=== PATIENT | male | born 1960 | race Caucasian/White ===

== ENCOUNTER → 2016-09-22 | Outpatient (CLI) | payer OTHER ==
[~2016-09-22] MED LIST: APIDRA100 U/ML SC; AUGMENTIN XR 101 TER PO; CIPRODEX 0.3%-7.5 ML OT; HYDROCODONE BIT1 T11 PO; KEFLEX500 MG PO; LANTUS100 U/ML SC; MOTRIN800 MG PO; OMEPRAZOLE40 MG PO; RAMIPRIL PO; RAMIPRIL2.5 MG PO; SIMVASTATIN40 MG PO; ULTRAM50 MG PO; VICODIN 5/500 505 MG PO
[2016-09-22 09:50] LABS: ALBUMIN 3.8 gm/dl (3.1-4.5); ALKALINE PHOSPHATASE 72 U/L (45-117); BILIRUBIN, TOTAL 0.7 mg/dl (0.2-1.0); BUN 16 mg/dl (7-24); CARBON DIOXIDE 31 mmol/L (21-32); CHLORIDE 105 mmol/L (98-107); CHOLESTEROL 149 mg/dL (<200); EST GLOM FILT AFRICAN AMERICAN > 60 ml/min; GLUCOSE 81 mg/dL (65-99); HDL CHOLESTEROL 54 mg/dl (40-60); LDL CHOLESTEROL 82 mg/dL (9-159); POTASSIUM 4.3 mmol/L (3.5-5.1); SGOT/AST 23 IU/L (3-35); SGPT/ALT 27 U/L (12-78); SODIUM 141 mmol/L (136-145); TOTAL PROTEIN 7.2 gm/dL (6.4-8.2); TRIGLYCERIDES 63 mg/dl (<150); VLDL CHOLESTEROL 13 mg/dL (6-40)
[2016-09-22 10:42] LABS: HEMOGLOBIN A1c 6.5 % (4.8-5.6)
== END | disposition home or self-care (01) ==
LOC: LAB 08:27
PROVIDERS: Physician Assistant
DX: E78.2 Mixed hyperlipidemia (principal); E10.9 Type 1 diabetes mellitus without complications

== ENCOUNTER → 2017-04-21 | Outpatient (CLI) | payer OTHER ==
[2017-04-21 06:27] LABS: ALBUMIN 3.6 gm/dl (3.1-4.5); BUN 13 mg/dl (7-24); CHLORIDE 106 mmol/L (98-107); CHOLESTEROL 126 mg/dL (<200); CREATININE 1.17 mg/dL (0.70-1.30); POTASSIUM 4.6 mmol/L (3.5-5.1); SGOT/AST 23 IU/L (3-35); SGPT/ALT 22 U/L (12-78); SODIUM 140 mmol/L (136-145); VLDL CHOLESTEROL 17 mg/dL (6-40)
[2017-04-21 06:29] LABS: ALKALINE PHOSPHATASE 98 U/L (45-117); HDL CHOLESTEROL 42 mg/dl (40-60); LDL CHOLESTEROL 67 mg/dL (9-159); TOTAL PROTEIN 6.8 gm/dL (6.4-8.2)
== END | disposition home or self-care (01) ==
LOC: LAB 05:04
PROVIDERS: Internal Medicine Endocrinology, Diabetes & Metabolism
DX: E10.9 Type 1 diabetes mellitus without complications (principal); E78.2 Mixed hyperlipidemia

== ENCOUNTER → 2018-01-22 | Outpatient (CLI) | payer OTHER ==
[2018-01-22 15:56] LABS: BASO # 0.1 10*3/uL (0.0-0.1); BASO % 0.8 % (0.0-1.0); EOS # 0.2 10*3/uL (0.0-0.4); EOS % 2.5 % (1.0-4.0); HEMATOCRIT 41.8 % (42.0-52.0); HEMOGLOBIN 14.2 g/dl (14.0-18.0); LYMPH # 2.1 10*3/uL (1.3-4.4); LYMPH % 28.1 % (27.0-41.0); MEAN CELL VOLUME 88.6 fl (80.0-94.0); MEAN CORPUSCULAR HGB 30.1 pg (27.0-31.0); MEAN PLATELET VOLUME 10.6 fl (9.6-12.3); MONO # 0.4 10*3/uL (0.1-1.0); MONO % 5.5 % (3.0-9.0); NEUT # 4.6 10*3/uL (2.3-7.9); PLATELET COUNT AUTOMATED 241 10*3/uL (130-400); RED BLOOD COUNT 4.72 10*6/uL (4.50-5.90); RED CELL DISTRI WIDTH 11.9 % (0-14.5); WHITE BLOOD COUNT 7.3 10*3/uL (4.8-10.8)
[2018-01-23 05:12] LABS: TOTAL PROTEIN, SERUM 6.5 g/dL (6.0-8.5)
[2018-01-23 14:07] LABS: A/G RATIO 1.4 (0.7-1.7); ALBUMIN 3.8 g/dL (2.9-4.4); ALPHA-1-GLOBULIN 0.2 g/dL (0.0-0.4); ALPHA-2-GLOBULIN 0.6 g/dL (0.4-1.0); BETA GLOBULIN 0.9 g/dL (0.7-1.3); GLOBULIN, TOTAL 2.7 g/dL (2.2-3.9); M-SPIKE Not Observed g/dL (Not Observed)
== END | disposition home or self-care (01) ==
LOC: LAB 15:24
PROVIDERS: Orthopaedic Surgery
DX: M48.062 Spinal stenosis, lumbar region with neurogenic claudication (principal); E78.2 Mixed hyperlipidemia; E10.9 Type 1 diabetes mellitus without complications

== ENCOUNTER → 2019-01-14 | Outpatient (CLI) | payer OTHER ==
--- NOTE | ~2019-01-14 | EKG ---
[place], [place] ELECTROCARDIOGRAM REPORT NAME: ROMA SHARMA UNIT #: [id number] ROOM: DOCTOR: EPIPHANY DRAFT REPORT BIRTHDATE: [birth year] [facility] Test Date: 2019-01-14 Test Time: 07:48:38 Pat Name: ROMA SHARMA Department: Room: OP Gender: M Career Coordinator: : 1960 Requested By: PARMINDER SANTANA Order Number: [id number] Reading MD: Arun Buenrostro Measurements Intervals [place] Rate: 58 P: 52 NM: 165 QRS: -38 QRSD: 101 T: 3 QT: 431 QTc: 424 Interpretive Statements Sinus rhythm Left axis deviation Borderline ST elevation, anterolateral leads Baseline wander in lead(s) V3,V5 Electronically Signed On 01-14-2019 9:42:42 PST by Arun Buenrostro CM:EKGRPT:ELECTROCARDIOGRAM REPORT [id number] PARMINDER SANTANA EPIPHANY DRAFT REPORT PARMINDER SANTANA
[2019-01-14 08:13] LABS: ALBUMIN 3.8 gm/dl (3.1-4.5); ALKALINE PHOSPHATASE 66 U/L (45-117); BUN 17 mg/dl (7-24); CHLORIDE 104 mmol/L (98-107); CHOLESTEROL 151 mg/dL (<200); CREATININE 1.13 mg/dL (0.70-1.30); HDL CHOLESTEROL 59 mg/dl (40-60); LDL CHOLESTEROL 80 mg/dL (9-159); POTASSIUM 4.2 mmol/L (3.5-5.1); SGOT/AST 24 IU/L (3-35); SGPT/ALT 26 U/L (12-78); SODIUM 139 mmol/L (136-145); TOTAL PROTEIN 7.2 gm/dL (6.4-8.2); VLDL CHOLESTEROL 12 mg/dL (6-40)
== END | disposition home or self-care (01) ==
LOC: LAB 07:12
PROVIDERS: Internal Medicine Endocrinology, Diabetes & Metabolism
DX: Z01.812 Encounter for preprocedural laboratory examination (principal); S76.311D Strain of muscle, fascia and tendon of the posterior muscle group at thigh level, right thigh, subsequent encounter; E11.9 Type 2 diabetes mellitus without complications; E78.2 Mixed hyperlipidemia; X58.XXXD Exposure to other specified factors, subsequent encounter

== ENCOUNTER → 2020-03-16 | Outpatient (CLI) | payer OTHER ==
[2020-03-16 08:30] LABS: ALBUMIN 3.9 gm/dl (3.1-4.5); ALKALINE PHOSPHATASE 79 U/L (45-117); BUN 17 mg/dl (7-24); CHLORIDE 108 mmol/L (98-107); CHOLESTEROL 163 mg/dL (<200); CREATININE 1.16 mg/dL (0.70-1.30); HDL CHOLESTEROL 71 mg/dl (40-60); LDL CHOLESTEROL 80 mg/dL (9-159); POTASSIUM 4.7 mmol/L (3.5-5.1); SGOT/AST 30 IU/L (3-35); SGPT/ALT 28 U/L (12-78); SODIUM 142 mmol/L (136-145); TOTAL PROTEIN 7.2 gm/dL (6.4-8.2); VLDL CHOLESTEROL 12 mg/dL (6-40)
== END | disposition home or self-care (01) ==
LOC: LAB 07:14
PROVIDERS: ATTEND Internal Medicine Endocrinology, Diabetes & Metabolism
DX: E10.9 Type 1 diabetes mellitus without complications (principal); E78.2 Mixed hyperlipidemia

== ENCOUNTER → 2020-09-12 | Outpatient (CLI) | payer OTHER ==
[2020-09-12 09:55] LABS: CHLORIDE 108 mmol/L (98-107); POTASSIUM 4.3 mmol/L (3.5-5.1); SODIUM 140 mmol/L (136-145)
[2020-09-12 10:18] LABS: ALBUMIN 3.7 gm/dl (3.1-4.5); ALKALINE PHOSPHATASE 78 U/L (45-117); BUN 19 mg/dl (7-24); CHOLESTEROL 152 mg/dL (<200); CREATININE 0.96 mg/dL (0.70-1.30); LDL CHOLESTEROL 88 mg/dL (9-159); SGOT/AST 23 IU/L (3-35); SGPT/ALT 26 U/L (12-78); TOTAL PROTEIN 7.1 gm/dL (6.4-8.2)
[2020-09-13 04:05] LABS: CREATININE,URINE 73.1 mg/dL (Not Estab.)
== END | disposition home or self-care (01) ==
LOC: LAB 08:33
PROVIDERS: ATTEND Internal Medicine Endocrinology, Diabetes & Metabolism
DX: E10.9 Type 1 diabetes mellitus without complications (principal); E78.2 Mixed hyperlipidemia

== ENCOUNTER → 2021-04-02 | Outpatient (CLI) | payer OTHER ==
[2021-04-02 08:21] LABS: ALBUMIN 3.5 gm/dl (3.1-4.5); ALKALINE PHOSPHATASE 83 U/L (45-117); BUN 18 mg/dl (7-24); CHLORIDE 112 mmol/L (98-107); CHOLESTEROL 132 mg/dL (<200); CREATININE 1.06 mg/dL (0.70-1.30); LDL CHOLESTEROL 69 mg/dL (9-159); POTASSIUM 4.7 mmol/L (3.5-5.1); SGOT/AST 24 IU/L (3-35); SGPT/ALT 24 U/L (12-78); SODIUM 142 mmol/L (136-145); TOTAL PROTEIN 6.7 gm/dL (6.4-8.2); TRIGLYCERIDES 94 mg/dl (<150)
[2021-04-03 11:06] LABS: LDL CHOLESTEROL (DIRECT) 70 mg/dL (0-99)
[2021-04-04 10:08] LABS: CREATININE,URINE 115.9 mg/dL (Not Estab.)
== END | disposition home or self-care (01) ==
LOC: LAB 07:27
PROVIDERS: ATTEND Internal Medicine Endocrinology, Diabetes & Metabolism
DX: E78.2 Mixed hyperlipidemia (principal); E10.9 Type 1 diabetes mellitus without complications

== ENCOUNTER 2021-05-10 22:50 | Emergency (ER) | payer OTHER ==
[~2021-05-10] VITALS: Ht 187.9 cm; Wt 88.5 kg
[2021-05-10 22:51] VITALS: BP 124/72
[2021-05-10 23:07] LABS: BASO # 0.1 10*3/uL (0.0-0.1); BASO % 0.8 % (0.0-1.0); EOS # 0.3 10*3/uL (0.0-0.4); EOS % 2.7 % (1.0-4.0); HEMATOCRIT 39.5 % (42.0-52.0); LYMPH # 2.7 10*3/uL (1.3-4.4); LYMPH % 24.8 % (27.0-41.0); MEAN CELL VOLUME 90.8 fl (80.0-94.0); MEAN CORPUSCULAR HGB 29.7 pg (27.0-31.0); MEAN CORPUSCULAR HGB CONC 32.7 g/dl (33.0-37.0); MEAN PLATELET VOLUME 11.1 fl (9.6-12.3); MONO # 0.8 10*3/uL (0.1-1.0); MONO % 7.5 % (3.0-9.0); NEUT % 63.9 % (47.0-73.0); PLATELET COUNT AUTOMATED 199 10*3/uL (130-400); RED BLOOD COUNT 4.35 10*6/uL (4.50-5.90); RED CELL DISTRI WIDTH 13.2 % (0-14.5); WHITE BLOOD COUNT 10.9 10*3/uL (4.8-10.8)
[2021-05-10 23:22] LABS: ALKALINE PHOSPHATASE 68 U/L (45-117); BUN 20 mg/dl (7-24); CHLORIDE 108 mmol/L (98-107); CREATININE 1.05 mg/dL (0.70-1.30); POTASSIUM 3.1 mmol/L (3.5-5.1); SGOT/AST 29 IU/L (3-35); SGPT/ALT 24 U/L (12-78); SODIUM 141 mmol/L (136-145); TOTAL PROTEIN 6.6 gm/dL (6.4-8.2)
[2021-05-11 00:49] LABS: BILIRUBIN Negative (Negative); BLOOD Negative (Negative); CLARITY Clear (Clear); COLOR Yellow (Yellow); GLUCOSE 3+ (Negative); KETONE Negative (Negative); LEUKO ESTERASE Negative (Negative); NITRITE Negative (Negative); SPECIFIC GRAVITY 1.015 (1.001-1.030); UROBILINOGEN 0.2 E.U./dl (0.0-1.0)
[2021-05-11 00:58] LABS: BACTERIA TRACE
== END 2021-05-11 01:27 | disposition home or self-care (01) ==
LOC: ED 22:50
PROVIDERS: Student in an Organized Health Care Education/Training Program
DX: E11.649 Type 2 diabetes mellitus with hypoglycemia without coma (principal); Z79.899 Other long term (current) drug therapy

== ENCOUNTER → 2021-07-04 | Outpatient (CLI) | payer OTHER ==
[2021-07-04 10:26] LABS: ALKALINE PHOSPHATASE 73 U/L (45-117); BUN 21 mg/dl (7-24); CHLORIDE 111 mmol/L (98-107); CHOLESTEROL 141 mg/dL (<200); CREATININE 1.06 mg/dL (0.70-1.30); LDL CHOLESTEROL 67 mg/dL (9-159); POTASSIUM 4.2 mmol/L (3.5-5.1); SGOT/AST 51 IU/L (3-35); SGPT/ALT 33 U/L (12-78); SODIUM 142 mmol/L (136-145)
== END | disposition home or self-care (01) ==
LOC: LAB 08:02
PROVIDERS: ATTEND Internal Medicine Endocrinology, Diabetes & Metabolism
DX: E10.9 Type 1 diabetes mellitus without complications (principal); E78.2 Mixed hyperlipidemia

== ENCOUNTER → 2021-10-16 | Outpatient (CLI) | payer OTHER ==
[2021-10-16 08:14] LABS: ALKALINE PHOSPHATASE 72 U/L (45-117); BUN 18 mg/dl (7-24); CHLORIDE 107 mmol/L (98-107); CHOLESTEROL 158 mg/dL (<200); CREATININE 1.02 mg/dL (0.70-1.30); LDL CHOLESTEROL 83 mg/dL (9-159); POTASSIUM 4.7 mmol/L (3.5-5.1); SGOT/AST 23 IU/L (3-35); SGPT/ALT 20 U/L (12-78); SODIUM 141 mmol/L (136-145); TOTAL PROTEIN 7.1 gm/dL (6.4-8.2); TRIGLYCERIDES 59 mg/dl (<150)
== END | disposition home or self-care (01) ==
LOC: LAB 07:28
PROVIDERS: ATTEND Internal Medicine Endocrinology, Diabetes & Metabolism
DX: E10.9 Type 1 diabetes mellitus without complications (principal); E78.2 Mixed hyperlipidemia

== ENCOUNTER → 2022-03-14 | Outpatient (CLI) | payer OTHER ==
[2022-03-14 08:33] LABS: ALKALINE PHOSPHATASE 72 U/L (46-116); BUN 15 mg/dl (9-23); CHLORIDE 107 mmol/L (98-107); CHOLESTEROL 161 mg/dL (<200); POTASSIUM 4.3 mmol/L (3.4-5.1); SGPT/ALT 18 U/L (10-49); TOTAL PROTEIN 6.9 gm/dL (6.0-8.0)
[2022-03-14 11:49] LABS: LDL CHOLESTEROL 84 mg/dL (9-159)
== END | disposition home or self-care (01) ==
LOC: LAB 07:28
PROVIDERS: ATTEND Internal Medicine Endocrinology, Diabetes & Metabolism
DX: E78.2 Mixed hyperlipidemia (principal)

== ENCOUNTER → 2022-04-16 | Outpatient (CLI) | payer OTHER ==
[2022-04-16 12:12] LABS: BILIRUBIN Negative (Negative); BLOOD Negative (Negative); CLARITY Clear (Clear); COLOR Yellow (Yellow); GLUCOSE Negative (Negative); KETONE Negative (Negative); LEUKO ESTERASE Negative (Negative); NITRITE Negative (Negative); PH 5.5 (4.5-8.0); SPECIFIC GRAVITY <= 1.005 (1.001-1.030); UROBILINOGEN 0.2 E.U./dl (0.0-1.0)
[2022-04-16 12:26] LABS: BACTERIA TRACE; EPITHELIAL CELLS 0-2
== END | disposition home or self-care (01) ==
LOC: LAB 11:42
PROVIDERS: ATTEND Nurse Practitioner Family
DX: R30.0 Dysuria (principal)

== ENCOUNTER → 2022-10-18 | Outpatient (CLI) | payer OTHER ==
[2022-10-18 08:45] LABS: ALKALINE PHOSPHATASE 76 U/L (46-116); BUN 13 mg/dl (9-23); CHLORIDE 105 mmol/L (98-107); CHOLESTEROL 136 mg/dL (<200); LDL CHOLESTEROL 65 mg/dL (9-159); POTASSIUM 4.5 mmol/L (3.4-5.1); SGPT/ALT 18 U/L (10-49); TOTAL PROTEIN 6.9 gm/dL (6.0-8.0); TRIGLYCERIDES 68 mg/dl (<150)
== END | disposition home or self-care (01) ==
LOC: LAB 07:53
PROVIDERS: ATTEND Internal Medicine Endocrinology, Diabetes & Metabolism
DX: E10.9 Type 1 diabetes mellitus without complications (principal); E78.2 Mixed hyperlipidemia

== ENCOUNTER → 2022-11-05 | Outpatient (CLI) | payer OTHER | END | disposition home or self-care (01) | LOC: RESCLI 01:13 | PROVIDERS: ATTEND Student in an Organized Health Care Education/Training Program | DX: E10.9 Type 1 diabetes mellitus without complications (principal); E78.5 Hyperlipidemia, unspecified; K21.9 Gastro-esophageal reflux disease without esophagitis; E10.319 Type 1 diabetes mellitus with unspecified diabetic retinopathy without macular edema; Z00.00 Encounter for general adult medical examination without abnormal findings; H40.9 Unspecified glaucoma; Z79.82 Long term (current) use of aspirin; Z79.899 Other long term (current) drug therapy ==

== ENCOUNTER → 2023-03-13 | Outpatient (CLI) | payer OTHER | END | disposition home or self-care (01) | LOC: LAB 07:06 | PROVIDERS: ATTEND Urology | DX: N40.1 Benign prostatic hyperplasia with lower urinary tract symptoms (principal); R97.20 Elevated prostate specific antigen [PSA] ==

== ENCOUNTER → 2023-04-17 | Outpatient (CLI) | payer OTHER ==
[2023-04-17 08:18] LABS: BASO # 0.1 10*3/uL (0.0-0.1); BASO % 0.8 % (0.0-1.0); EOS # 0.3 10*3/uL (0.0-0.4); EOS % 4.9 % (1.0-4.0); HEMATOCRIT 42.8 % (42.0-52.0); LYMPH # 1.5 10*3/uL (1.3-4.4); LYMPH % 24.5 % (27.0-41.0); MEAN CELL VOLUME 90.9 fl (80.0-94.0); MEAN CORPUSCULAR HGB 30.4 pg (27.0-31.0); MEAN CORPUSCULAR HGB CONC 33.4 g/dl (33.0-37.0); MEAN PLATELET VOLUME 10.5 fl (9.6-12.3); MONO # 0.4 10*3/uL (0.1-1.0); MONO % 7.2 % (3.0-9.0); NEUT # 3.7 10*3/uL (2.3-7.9); NEUT % 62.3 % (47.0-73.0); PLATELET COUNT AUTOMATED 237 10*3/uL (130-400); RED BLOOD COUNT 4.71 10*6/uL (4.50-5.90); RED CELL DISTRI WIDTH 12.2 % (0-14.5)
[2023-04-17 08:28] LABS: URINE CREATININE RANDOM 87.74 mg/dL
[2023-04-17 08:47] LABS: ALKALINE PHOSPHATASE 78 U/L (46-116); BUN 15 mg/dl (9-23); CHLORIDE 106 mmol/L (98-107); CHOLESTEROL 155 mg/dL (<200); LDL CHOLESTEROL 81 mg/dL (9-159); POTASSIUM 4.6 mmol/L (3.4-5.1); SGPT/ALT 18 U/L (5-49); TOTAL PROTEIN 6.7 gm/dL (6.0-8.0); TRIGLYCERIDES 46 mg/dl (<150)
== END | disposition home or self-care (01) ==
LOC: LAB 07:49
PROVIDERS: ATTEND Student in an Organized Health Care Education/Training Program
DX: Z12.5 Encounter for screening for malignant neoplasm of prostate (principal); E10.319 Type 1 diabetes mellitus with unspecified diabetic retinopathy without macular edema; E78.2 Mixed hyperlipidemia

== ENCOUNTER → 2023-10-22 | Outpatient (CLI) | payer OTHER ==
[2023-10-22 08:38] LABS: BASO # 0.1 10*3/uL (0.0-0.1); BASO % 1.3 % (0.0-1.0); EOS # 0.3 10*3/uL (0.0-0.4); EOS % 5.2 % (1.0-4.0); HEMATOCRIT 43.1 % (42.0-52.0); LYMPH # 1.7 10*3/uL (1.3-4.4); LYMPH % 31.7 % (27.0-41.0); MEAN CELL VOLUME 88.7 fl (80.0-94.0); MEAN CORPUSCULAR HGB 30.7 pg (27.0-31.0); MEAN CORPUSCULAR HGB CONC 34.6 g/dl (33.0-37.0); MEAN PLATELET VOLUME 10.5 fl (9.6-12.3); MONO # 0.4 10*3/uL (0.1-1.0); MONO % 7.8 % (3.0-9.0); NEUT # 2.9 10*3/uL (2.3-7.9); NEUT % 53.8 % (47.0-73.0); PLATELET COUNT AUTOMATED 223 10*3/uL (130-400); RED BLOOD COUNT 4.86 10*6/uL (4.50-5.90); RED CELL DISTRI WIDTH 12.6 % (0-14.5); WHITE BLOOD COUNT 5.4 10*3/uL (4.8-10.8)
[2023-10-22 09:12] LABS: ALKALINE PHOSPHATASE 78 U/L (46-116); BUN 17 mg/dl (9-23); CHLORIDE 106 mmol/L (98-107); CHOLESTEROL 149 mg/dL (<200); FREE T4 1.14 ng/dl (0.89-1.76); LDL CHOLESTEROL 72 mg/dL (9-159); POTASSIUM 4.4 mmol/L (3.4-5.1); SGPT/ALT 22 U/L (5-49); TOTAL PROTEIN 6.9 gm/dL (6.0-8.0); TRIGLYCERIDES 51 mg/dl (<150)
== END | disposition home or self-care (01) ==
LOC: LAB 07:58
PROVIDERS: ATTEND Student in an Organized Health Care Education/Training Program
DX: E10.319 Type 1 diabetes mellitus with unspecified diabetic retinopathy without macular edema (principal); E78.2 Mixed hyperlipidemia; R68.89 Other general symptoms and signs

== ENCOUNTER → 2024-04-13 | Outpatient (CLI) | payer MEDICARE | END | disposition home or self-care (01) | LOC: RAD 08:25 | PROVIDERS: ATTEND Chiropractor | DX: M48.07 Spinal stenosis, lumbosacral region (principal); M54.50 Low back pain, unspecified ==

== ENCOUNTER → 2024-04-14 | Outpatient (CLI) | payer MEDICARE ==
[2024-04-14 07:43] LABS: BASO # 0.1 10*3/uL (0.0-0.1); BASO % 1.2 % (0.0-1.0); EOS # 0.4 10*3/uL (0.0-0.4); EOS % 6.6 % (1.0-4.0); HEMATOCRIT 41.3 % (42.0-52.0); MEAN CORPUSCULAR HGB 29.7 pg (27.0-31.0); MEAN CORPUSCULAR HGB CONC 32.7 g/dl (33.0-37.0); MEAN PLATELET VOLUME 10.5 fl (9.6-12.3); MONO # 0.6 10*3/uL (0.1-1.0); MONO % 11.1 % (3.0-9.0); NEUT # 2.7 10*3/uL (2.3-7.9); NEUT % 47.9 % (47.0-73.0); PLATELET COUNT AUTOMATED 218 10*3/uL (130-400); RED BLOOD COUNT 4.54 10*6/uL (4.50-5.90); WHITE BLOOD COUNT 5.6 10*3/uL (4.8-10.8)
[2024-04-14 08:58] LABS: ALKALINE PHOSPHATASE 73 U/L (46-116); BUN 17 mg/dl (9-23); CHLORIDE 108 mmol/L (98-107); CHOLESTEROL 129 mg/dL (<200); LDL CHOLESTEROL 58 mg/dL (9-159); POTASSIUM 4.4 mmol/L (3.4-5.1); SGPT/ALT 19 U/L (5-49); TOTAL PROTEIN 6.6 gm/dL (6.0-8.0); TRIGLYCERIDES 62 mg/dl (<150)
== END | disposition home or self-care (01) ==
LOC: LAB 07:16
PROVIDERS: ATTEND Student in an Organized Health Care Education/Training Program
DX: Z12.5 Encounter for screening for malignant neoplasm of prostate (principal); N40.0 Benign prostatic hyperplasia without lower urinary tract symptoms; E10.319 Type 1 diabetes mellitus with unspecified diabetic retinopathy without macular edema; E78.2 Mixed hyperlipidemia

== ENCOUNTER → 2024-04-30 | Outpatient (CLI) | payer MEDICARE ==
[2024-04-30 11:15] LABS: FREE T4 0.94 ng/dl (0.89-1.76)
== END | disposition home or self-care (01) ==
LOC: LAB 10:17
PROVIDERS: ATTEND Student in an Organized Health Care Education/Training Program
DX: R68.89 Other general symptoms and signs (principal)

== ENCOUNTER → 2024-10-13 | Outpatient (CLI) | payer MEDICARE ==
[2024-10-13 09:25] LABS: FREE T4 0.98 ng/dl (0.89-1.76)
== END | disposition home or self-care (01) ==
LOC: LAB 07:57
PROVIDERS: ATTEND Student in an Organized Health Care Education/Training Program
DX: R68.89 Other general symptoms and signs (principal)

== ENCOUNTER 2025-02-16 10:56 | Emergency (ER) | payer MEDICARE ==
[~2025-02-16] VITALS: Wt 83.9 kg
[2025-02-16] MEDS ORDERED: SODIUM CHLORIDE 0.9% 1,000 ML IV ONE (11:15)
[2025-02-16] MEDS ORDERED: HYDROmorphONE Hydrochloride 0.5 MG/0.5 ML SYRINGE IV ONE ×3 (11:15→17:50)
[2025-02-16] MEDS ORDERED: METHOCARBAMOL 500 MG TAB PO ONE (11:15)
[2025-02-16] MEDS ORDERED: IOHEXOL 300 MG/ML 100 ML VIAL IV ONE (11:25)
[2025-02-16] MEDS ORDERED: IOHEXOL 300 MG/ML 100 ML VIAL ONE (11:45)
[2025-02-16] MEDS ORDERED: INSULIN REGULAR HUMAN IV ONE (14:05)
[2025-02-16] MEDS ORDERED: INSULIN REGULAR, HUMAN 1 UNIT/0.01 ML IV ONE (14:10)
[2025-02-16 17:47] VITALS: BP 121/62
== END 2025-02-16 18:45 | disposition short-term general hospital (02) ==
LOC: ED 10:56
DX: S32.9XXA Fracture of unspecified parts of lumbosacral spine and pelvis, initial encounter for closed fracture (principal); S29.8XXA Other specified injuries of thorax, initial encounter; S49.91XA Unspecified injury of right shoulder and upper arm, initial encounter; K21.9 Gastro-esophageal reflux disease without esophagitis; E11.9 Type 2 diabetes mellitus without complications; E78.00 Pure hypercholesterolemia, unspecified; W11.XXXA Fall on and from ladder, initial encounter; Y93.89 Activity, other specified; Y92.89 Other specified places as the place of occurrence of the external cause; Y99.8 Other external cause status